=== PATIENT | male | born 1990 | race Caucasian/White ===

== ENCOUNTER 2021-04-26 17:36 | Inpatient (IN) ==
[2021-04-26 18:41] LABS: Bilirubin,Urine Negative (Negative); Blood,Urine Negative (Negative); Clarity,Urine Clear (Clear); Color,Urine Colorless (Yellow); Glucose,Urine (UA) Normal (Normal); Ketones,Urine Negative (Negative); Leukocyte Esterase,Urine Negative (Negative); Nitrite,Urine Negative (Negative); PH,Urine 6.5 pH Units (5.0-8.0); Protein,Urine Negative (Neg-Trace); Specific Gravity,Urine 1.006 (1.010-1.025); Urobilinogen,Urine Normal (Normal)
[2021-04-26 18:43] LABS: Basophils # 0.1 K/mcL (0.0-0.2); Basophils % 0.6 %; Eosinophils # 0.1 K/mcL (0.0-0.6); Eosinophils % 0.9 %; Immature Granulocytes % 0.3 % (0-4); Lymphocytes # 1.6 K/mcL (0.6-4.6); Lymphocytes % 20.5 %; Mean Corpuscular HGB Conc 33.3 g/dL (31.6-35.5); Mean Corpuscular Hemoglobin 29.6 pg (28.0-33.3); Mean Corpuscular Volume 88.9 fL (83.0-100.0); Mean Platelet Volume 9.8 fL (9.4-12.4); Monocytes # 0.4 K/mcL (0.0-1.3); Monocytes % 5.5 %; Neutrophils # 5.7 K/mcL (1.6-8.9); Platelet Count 283 K/mcL (140-400); Red Cell Distribution Width 12.4 % (11.5-14.5); Segmented Neutrophils % 72.2 %
[2021-04-26 18:51] LABS: Amphetamine Screen,Urine Negative ng/mL (Cutoff=1000); Barbiturate Screen,Urine Negative ng/mL (Cutoff=200); Benzodiazepines Screen,Urine Negative ng/mL (Cutoff=200); Cannabinoid Screen,Urine Negative ng/mL (Cutoff = 50); Cocaine Screen,Urine Negative ng/mL (Cutoff= 300); Opiate Screen,Urine Negative ng/mL (Cutoff=300); Phencyclidine Screen,Urine Negative ng/mL (Cutoff=25)
[2021-04-26 18:57] LABS: Estimated Average Glucose 100 mg/dl; Hemoglobin A1C 5.1 %
[2021-04-26 18:58] LABS: Acetaminophen < 10 mcg/mL (10-20); BUN/Creatinine Ratio 8 (6-26); Blood Urea Nitrogen 6 mg/dL (6-20); Carbon Dioxide 30 mEq/L (23-29); Chloride 105 mEq/L (98-107); Chol/HDL Ratio 2.9 (0-4.9); Cholesterol 152 mg/dL (< 200); Ethanol < 10 mg/dL (Less than 10); Glucose 80 mg/dL (70-105); HDL Cholesterol 52 mg/dL (40-59); LDL Cholesterol,Calculated 86 mg/dL (< 100); Osmolality,Calculated 289 (280-300); Potassium 4.1 mEq/L (3.5-5.1); Salicylate < 2.5 mg/dL (15.0-30.0); Sodium 141 mEq/L (136-145); Triglycerides 69 mg/dL (< 150); eGFR For African Americans > 60 (> 60); eGFR For Non-African Americans > 60 (> 60)
[2021-04-26] MEDS ORDERED: *HR* LORazepam 2 MG/ML VIAL IM STA (19:44)
[2021-04-26 23:40] LABS: Influenza A PCR Negative (Negative); Influenza B PCR Negative (Negative); Resp. Syncytial Virus PCR Negative (Negative); SARS-CoV-2 by PCR (In House) Negative (Negative)
[2021-04-27] MEDS ORDERED: *HR* LORazepam 1 MG TABLET PO PRN (00:41)
[2021-04-27] MEDS ORDERED: *HR* LORazepam 2 MG/ML VIAL IM PRN (00:41)
[2021-04-27] MEDS ORDERED: Ibuprofen 400 MG TABLET PO PRN (00:41)
[2021-04-27] MEDS ORDERED: haloperidoL 5 MG TABLET PO PRN (00:41)
[2021-04-27] MEDS ORDERED: Haloperidol Lactate 5 MG/ML VIAL IM PRN (00:41)
[2021-04-27] MEDS: traZODone 50 MG TABLET PO PRN ×2 (02:17→20:50)
[2021-04-27] MEDS ORDERED: MOM Conc 10 ML UD.LIQ PO PRN (12:52)
[2021-04-27] MEDS ORDERED: Mag Hydrox/Al Hydrox/Simeth 30 ML UDC PO PRN (12:52)
[2021-04-27] MEDS: Nicotine 21 MG PATCH.TD24 TD SCH (14:00)
[2021-04-27] MEDS ORDERED: risperiDONE 1 MG TABLET PO SCH (21:00)
[2021-04-28] MEDS: Nicotine 21 MG PATCH.TD24 TD SCH (07:53)
[2021-04-28] MEDS: hydrOXYzine pamoate 25 MG CAPSULE PO PRN ×2 (07:53→20:54)
[2021-04-28] MEDS: risperiDONE 1 MG TABLET PO SCH (20:53)
[2021-04-28] MEDS: traZODone 50 MG TABLET PO PRN (20:54)
[2021-04-29] MEDS: Nicotine 21 MG PATCH.TD24 TD SCH (08:45)
[2021-04-29] MEDS: Nicotine 2 MG GUM BC PRN ×3 (10:59→16:58)
[2021-04-29] MEDS: traZODone 50 MG TABLET PO PRN (20:56)
[2021-04-29] MEDS: risperiDONE 1 MG TABLET PO SCH (20:56)
[2021-04-29] MEDS: hydrOXYzine pamoate 25 MG CAPSULE PO PRN (20:56)
[2021-04-30] MEDS: Nicotine 2 MG GUM BC PRN ×3 (08:34→16:57)
[2021-04-30 09:05] VITALS: BP 133/88; PULSE 94; TEMP 98.4; O2SAT 97
[2021-04-30 15:07] LABS: Chlamydia Trachomatis DNA Ur NOT DETECTED (Not Detect)
[2021-04-30 18:26] LABS: Hepatitis B Surface Antigen Nonreactive (Nonreactive)
[2021-04-30 18:55] LABS: Hepatitis B Core IgM Nonreactive (Nonreactive)
[2021-04-30 18:56] LABS: HIV-1&2 Antibody & p24 Ag Nonreactive (Nonreactive); Hepatitis A Antibody IgM Nonreactive (Nonreactive)
[2021-05-01 00:06] LABS: Hepatitis C Virus Antibody Reactive (Nonreactive)
== END 2021-04-30 19:45 | disposition home or self-care (01) | DRG 753 ==
LOC: EMEROOARM 17:36 → 1ANU 04-27 00:38
PROVIDERS: ADMIT Psychiatry & Neurology Psychiatry; ATTEND Psychiatry & Neurology Psychiatry